=== PATIENT | male | born 1950 | race Caucasian/White ===

== ENCOUNTER → 2017-11-24 22:34 | Outpatient (CLI) | payer BC ==
[2010-04-17 11:30] VITALS: BMI 34.7
[2017-11-24 23:06] LABS: ALBUMIN 3.3 g/dL (3.4-5.0); ALKALINE PHOSPHATASE 102 U/L (46-116); ALT (SGPT) 46 U/L (10-68); BILIRUBIN - TOTAL 0.32 mg/dL (0.2-1.3); CALC OSMOLALITY 277 mosm/kg (275-300); CALCIUM 9.3 mg/dL (8.5-10.1); CARBON DIOXIDE 30.8 mmol/L (21.0-32.0); CHLORIDE - SERUM 99 mmol/L (98-107); GLUCOSE 106 mg/dL (74-106); PROTEIN - SERUM 8.1 g/dL (6.4-8.2); SODIUM 138 mmol/L (136-145); UREA NITROGEN 17 mg/dL (7-18); eGFR NON AFRICAN AMERICAN 79 mL/min (90-120)
[2017-11-24 23:08] LABS: BASOPHILS 0.4 % (0-2); EOSINOPHILS 4.4 % (0-7); HEMATOCRIT 47.2 % (42.0-54.0); HEMOGLOBIN 15.9 g/dL (13.5-17.5); IMMATURE GRANULOCYTES 0.2 % (0-5); LYMPHOCYTES 24.9 % (15-50); MCH 32.6 pg (26.0-34.0); MCHC 33.7 g/dL (31.0-37.0); MCV 96.9 fL (80.0-100.0); MEAN PLATELET VOLUME 9.7 fL (7.4-10.4); MONOCYTES 7.8 % (2-11); NEUTROPHILS 62.3 % (40-80); PLATELET COUNT 200 10x3/uL (130-400); RBC 4.87 10x6/uL (4.20-6.10); RDW 12.9 % (11.5-14.5); WBC 4.5 10x3/uL (4.8-10.8)
[2017-11-24 23:10] LABS: POTASSIUM - SERUM 4.3 mmol/L (3.5-5.1)
== END | disposition home or self-care (01) ==
LOC: D.LABREF 22:34
PROVIDERS: Student in an Organized Health Care Education/Training Program
DX: R78.81 Bacteremia (principal)

== ENCOUNTER → 2017-11-27 10:04 | Outpatient (CLI) | payer BC ==
[2010-04-17 11:30] VITALS: BMI 34.7
[2017-11-27 13:58] LABS: ERYTHROCYTE SEDIMENTATION RATE 54 mm/hr (0-20)
== END | disposition home or self-care (01) ==
LOC: D.LABREF 10:04
PROVIDERS: Student in an Organized Health Care Education/Training Program
DX: T84.51XA Infection and inflammatory reaction due to internal right hip prosthesis, initial encounter (principal)

== ENCOUNTER → 2017-11-30 13:54 | Outpatient (CLI) | payer BC ==
[2010-04-17 11:30] VITALS: BMI 34.7
[2017-11-30 14:48] LABS: BASOPHILS 0.6 % (0-2); EOSINOPHILS 5.5 % (0-7); HEMATOCRIT 43.9 % (42.0-54.0); HEMOGLOBIN 14.8 g/dL (13.5-17.5); IMMATURE GRANULOCYTES 0.4 % (0-5); LYMPHOCYTES 26.3 % (15-50); MCH 32.5 pg (26.0-34.0); MCHC 33.7 g/dL (31.0-37.0); MCV 96.5 fL (80.0-100.0); MEAN PLATELET VOLUME 9.7 fL (7.4-10.4); MONOCYTES 8.9 % (2-11); NEUTROPHILS 58.3 % (40-80); PLATELET COUNT 173 10x3/uL (130-400); RBC 4.55 10x6/uL (4.20-6.10); WBC 4.9 10x3/uL (4.8-10.8)
[2017-11-30 15:05] LABS: ALBUMIN 3.4 g/dL (3.4-5.0); ALKALINE PHOSPHATASE 88 U/L (46-116); ALT (SGPT) 40 U/L (10-68); BILIRUBIN - TOTAL 0.38 mg/dL (0.2-1.3); CALC OSMOLALITY 274 mosm/kg (275-300); CALCIUM 9.5 mg/dL (8.5-10.1); CARBON DIOXIDE 31.1 mmol/L (21.0-32.0); CHLORIDE - SERUM 99 mmol/L (98-107); CREATININE - SERUM 0.9 mg/dL (0.6-1.3); GLUCOSE 93 mg/dL (74-106); POTASSIUM - SERUM 4.7 mmol/L (3.5-5.1); PROTEIN - SERUM 8.4 g/dL (6.4-8.2); SODIUM 137 mmol/L (136-145); UREA NITROGEN 16 mg/dL (7-18); eGFR NON AFRICAN AMERICAN 90 mL/min (90-120)
== END | disposition home or self-care (01) ==
LOC: D.LABREF 13:54
PROVIDERS: Student in an Organized Health Care Education/Training Program
DX: R78.81 Bacteremia (principal)

== ENCOUNTER → 2017-12-11 10:49 | Outpatient (CLI) | payer BC ==
[2010-04-17 11:30] VITALS: BMI 34.7
[2017-12-11 11:17] LABS: C-REACTIVE PROTEIN 0.6 mg/dL (0.0-0.9); CREATININE - SERUM 0.9 mg/dL (0.6-1.3); EOSINOPHILS 6.1 % (0-7); HEMOGLOBIN 14.8 g/dL (13.5-17.5); IMMATURE GRANULOCYTES 0.5 % (0-5); LYMPHOCYTES 26.6 % (15-50); MCH 32.8 pg (26.0-34.0); MCHC 34.4 g/dL (31.0-37.0); MCV 95.3 fL (80.0-100.0); MEAN PLATELET VOLUME 9.5 fL (7.4-10.4); MONOCYTES 7.3 % (2-11); NEUTROPHILS 58.5 % (40-80); PLATELET COUNT 258 10x3/uL (130-400); RBC 4.51 10x6/uL (4.20-6.10); RDW 12.9 % (11.5-14.5); WBC 4.1 10x3/uL (4.8-10.8)
[2017-12-11 11:25] LABS: ERYTHROCYTE SEDIMENTATION RATE 30 mm/hr (0-20)
== END | disposition home or self-care (01) ==
LOC: D.LABREF 10:49
PROVIDERS: Student in an Organized Health Care Education/Training Program
DX: T84.51XA Infection and inflammatory reaction due to internal right hip prosthesis, initial encounter (principal)